=== PATIENT | female | born 1950 | race Caucasian/White ===

== ENCOUNTER 2018-10-22 08:10 | Emergency (ER) | payer SELFPAY ==
[2018-10-22] MEDS ORDERED: SODIUM CHLORIDE 0.9% 1,000 ML IV ONE (08:55)
[2018-10-22 09:11] LABS: BILIRUBIN,URINE NEGATIVE (NEGATIVE); GLUCOSE, URINE (UA) NEGATIVE (NEGATIVE); KETONES,URINE (UA) NEGATIVE (NEGATIVE); LEUKOCYTE ESTERASE, URINE SMALL (NEGATIVE); NITRITE,URINE POSITIVE (NEGATIVE); OCCULT BLOOD,URINE LARGE (NEGATIVE); PROTEIN,URINE 30 mg/dL (NEGATIVE); UROBILINOGEN,URINE 1 (NORMAL) E.U./dL (NORMAL)
[2018-10-22 09:16] LABS: CLARITY,URINE HAZY (CLEAR)
[2018-10-22 09:20] LABS: BASOPHILS # (AUTO) 0.1 10^3/uL (0.0-0.1); BASOPHILS % (AUTO) 0.9 %; EOSINOPHILS # (AUTO) 0.2 10^3/uL (0.0-0.7); EOSINOPHILS % (AUTO) 1.4 %; HGB - HEMOGLOBIN 12.2 g/dL (12.0-16.0); LYMPHOCYTES # (AUTO) 1.5 10^3/uL (1.5-3.5); LYMPHOCYTES % (AUTO) 12.5 %; MEAN CORPUSCULAR HEMOGLOBIN 27.2 pg (27.0-31.0); MEAN CORPUSCULAR HGB CONC 32.3 g/dL (32.0-36.0); MEAN CORPUSCULAR VOLUME 84.2 fL (81.0-99.0); MEAN PLATELET VOLUME 7.3 fL (7.9-10.8); MONOCYTES # (AUTO) 0.8 10^3/uL (0.0-1.0); NEUTROPHILS # (AUTO) 9.3 10^3/uL (1.5-6.6); NEUTROPHILS % (AUTO) 78.2 %; PLT - PLATELET COUNT 411 10^3/uL (130-450); RED BLOOD COUNT 4.49 10^6/uL (4.20-5.40); RED CELL DISTRIBUTION WIDTH 16.4 % (12.0-15.0); WHITE BLOOD COUNT 11.8 x10^3/uL (4.8-10.8)
[2018-10-22 09:26] LABS: SQUAMOUS EPITHELIAL CELL,UR FEW Squamous (<= Few)
[2018-10-22 09:27] LABS: BACTERIA,URINE Moderate /HPF (None Seen)
[2018-10-22 09:31] LABS: ALBUMIN 3.9 g/dL (3.2-5.5); ALBUMIN/GLOBULIN RATIO 1.1 (1.0-2.2); BILIRUBIN,TOTAL 0.7 mg/dL (0.2-1.0); CALCIUM 8.9 mg/dL (8.5-10.3); CREATININE 0.8 mg/dL (0.4-1.0); TOTAL PROTEIN 7.5 g/dL (6.7-8.2)
--- NOTE | 2018-10-22 09:38 | XRAY Report ---
Reason: weakness Procedure Date: 10/22/2018 Accession Number: [id number] / [id number] Procedure: XR - Chest 2 View X-Ray CPT Code: 84573 FULL RESULT: EXAM: CHEST RADIOGRAPHY EXAM DATE: 10/22/2018 09:28 AM. CLINICAL HISTORY: Weakness. COMPARISON: None. TECHNIQUE: 2 views. FINDINGS: Lungs/Pleura: There is minimal horizontal linear atelectasis or scarring at the bilateral lung bases. No focal airspace consolidation. No pleural effusion. No pneumothorax. Normal volumes. Mediastinum: Heart and mediastinal contours are unremarkable. There is minimal atherosclerotic calcification of the aortic arch. Other: No acute osseous abnormality. There are surgical clips in the right upper quadrant of the abdomen. IMPRESSION: No acute cardiopulmonary abnormality. RADIA
--- NOTE | 2018-10-22 10:02 | CT Report ---
Reason: BETANCOURT, h/o headache Procedure Date: 10/22/2018 Accession Number: [id number] / [id number] Procedure: CT - Head W/O CPT Code: FULL RESULT: EXAM: CT HEAD EXAM DATE: 10/22/2018 09:37 AM. CLINICAL HISTORY: Headache. History of melanoma and tumor excision. COMPARISON: CT HEAD WITHOUT CONTRAST 08/06/2018 12:48 PM MR BRAIN WITHOUT AND WITH CONTRAST 08/06/2018 7:[address] BRAIN STEALTH WITH CONTRAST 08/06/2018 8:[address] HEAD WITHOUT CONTRAST 07/29/2018 11:10 AM. TECHNIQUE: Multiaxial CT images were obtained from the foramen magnum to the vertex. Reformats: Sagittal and coronal. IV contrast: None. In accordance with CT protocol optimization, one or more of the following dose reduction techniques were utilized for this exam: automated exposure control, adjustment of mA and/or KV based on patient size, or use of iterative reconstructive technique. FINDINGS: Parenchyma: There are evolving postsurgical changes of left frontal craniotomy and prior resection of left frontal lobe mass. Vasogenic edema of the left anterior frontal lobe white matter is decreased compared to prior. The previously seen pneumocephalus and resection defect containing fluid and gas are no longer visualized. There is heterogeneous mildly increased density along the left aspect of the frontal portion of the falx measuring approximately 2.0 x 1.0 x 1.5 cm (series 4 image 16, and series 7 image 6). This was not apparent on the prior exam. This could represent evolving subacute blood products or recurrent mass. There is also a 7 mm ovoid focus of increased density at the inferior medial left frontal lobe (series 4 image 8), not previously seen. No acute abnormality of the remainder of brain parenchyma. There are diffuse bilateral microangiopathic white matter changes. Stinson-white differentiation is distinct. No midline shift. Extraaxial Spaces: Normal for age. As noted above, there is a heterogeneous focus of mildly increased density along the left anterior aspect of the falx which may represent subdural fluid. Otherwise, no subdural or epidural collection identified. Ventricles: Normal in size and position. Sinuses and Orbits: There is an air-fluid level in the left sphenoid sinus. Otherwise, Imaged paranasal sinuses, orbits, and mastoids show no significant abnormality. Bones: There is evidence of prior left frontal craniotomy, as seen on the prior exam. No calvarial defect or fracture identified. Other: There is irregularity of the scalp over the vertex, likely related to postsurgical changes of debulking of scalp mass. IMPRESSION: 1. Evolving postsurgical changes of left frontal craniotomy and prior resection of left frontal lobe mass. 2. Focus of heterogeneous mildly increased density along the left anterior aspect of the falx adjacent to the site of prior craniotomy measuring up to 2.0 cm. This may represent evolving subacute blood products, possibly subdural. 3. Tiny 7 mm ovoid focus of increased density at the inferior medial left frontal lobe may represent postsurgical change, intraparenchymal hemorrhage, or recurrent mass. 4. Diffuse microangiopathic white matter changes. 5. Air-fluid level in the left sphenoid sinus, raising the possibility of acute sinusitis. RADIA The above findings were discussed with Sameer Hernandez by Dr. Donato Blum at 10:01 hrs on 10/22/18.
[2018-10-22] MEDS ORDERED: cefTRIAXone 1 GM in SODIUM CHLORIDE 0.9% MINIBAG 100 ML IV STA (10:07)
[2018-10-22] MEDS ORDERED: cefTRIAXone 1 GM VIAL ONE (10:14)
--- NOTE | 2018-10-22 10:25 | ED Physician Documentation ---
History of Present Illness - Stated complaint Stated Complaint: WEAKNESS/BACK PX - Chief complaint Chief Complaint: General - Additonal information Additional information: 68-year-old female with a history of brain cancer who was being treated at [facility] and then left AGAINST MEDICAL ADVICE. The patient was recently in [place] and now returns back to [facility]. The patient presents the emergency department today with ongoing head pain which started a couple days ago, general weakness and dysuria. The patient denies fevers or chills or neck pain. The patient denies chest pain or shortness of breath. Symptoms are described as severe. The patient denies any focal neurologic changes. No other acute symptoms and no relieving factors. Review of Systems Constitutional: denies: Fever, Chills, Fatigue Eyes: denies: Discharge Nose: denies: Congestion Throat: denies: Sore throat Cardiac: denies: Chest pain / pressure Respiratory: denies: Dyspnea GI: denies: Abdominal Pain : reports: Dysuria Musculoskeletal: denies: Neck pain Neurologic: reports: Generalized weakness, Headache. denies: Focal weakness, Numbness, Difficulty speaking, Near syncope, Syncope, Confused, Altered mental status Immunocompromised: reports: Immunocompromised PD PAST MEDICAL HISTORY - Past Medical History Past Medical History: Yes Cardiovascular: Arrhythmia Respiratory: None Neuro: Other Endocrine/Autoimmune: Type 2 diabetes GI: GERD, Chronic diarrhea, Chronic constipation GROUP CIO: None : None Musculoskeletal: None Derm: Other Other Past Medical History: Hx of skin cancer, with mets in several places - Past Surgical History Past Surgical History: Yes General: Cholecystectomy /GROUP CIO: Tubal ligation, Hysterectomy, Oophrectomy Derm: Skin grafts, Skin cancer surgery - Present Medications Home Medications: Ambulatory Orders Medication Instructions Recorded Confirmed Cephalexin [Keflex] 500 mg PO BID #14 capsule 10/22/18 Docusate Sodium [Dulcolax Stool 10/22/18 Softener] Gabapentin 10/22/18 Metformin HCl 10/22/18 Metoprolol Tartrate [Lopressor] 10/22/18 Red Yeast Rice 10/22/18 - Allergies Allergies/Adverse Reactions: Allergies Allergy/AdvReac Type Severity Reaction Status Date / Time lodoxamide Allergy Rash Verified 10/22/18 08:21 - Social History Does the pt smoke?: No Smoking Status: Never smoker Does the pt drink ETOH?: No Does the pt have substance abuse?: No - Immunizations Immunizations are current?: Yes - POLST Patient has POLST: No PD ED PE NORMAL - General General: Alert and oriented X 3, No acute distress - HEENT HEENT: Atraumatic. No: PERRL, EOMI, Ears normal - Neck Neck: Supple, no meningeal sign - Cardiac Cardiac: RRR, Strong equal pulses - Respiratory Respiratory: No respiratory distress, Clear bilaterally - Abdomen Abdomen: Soft, Non tender - Back Back: No CVA TTP - Derm Derm: Normal color - Extremities Extremities: No deformity, Normal ROM s pain - Neuro Neuro: Alert and oriented X 3, artist model 2-12 intact, No motor deficit, No sensory de ficit, Normal speech - Psych Psych: Normal mood Results - Vitals Vitals: Vital Signs - 24 hr 10/22/18 10/22/18 08:11 10:06 Temperature 36.4 C L 36.7 C Heart Rate 96 81 Respiratory 16 16 Rate Blood Pressure 163/72 H 164/72 H O2 Saturation 96 100 Oxygen O2 Source Room air - EKG (time done) 09:05 Rate: Rate (enter#) Rhythm: NSR Intervals: Normal MO, QRS normal QRS: Normal Ischemia: Non specific changes Compare to prior EKG: Other (No acute ischemic changes) - Labs Labs: Laboratory Tests 10/22/18 10/22/18 10/22/18 08:30 09:00 09:11 WBC 11.8 H RBC 4.49 Hgb 12.2 Hct 37.8 MCV 84.2 MCH 27.2 MCHC 32.3 RDW 16.4 H Plt Count 411 MPV 7.3 L Neut # (Auto) 9.3 H Lymph # (Auto) 1.5 [place] # (Auto) 0.8 Eos # (Auto) 0.2 Baso # (Auto) 0.1 Absolute Nucleated RBC 0.00 Nucleated RBC % 0.0 Sodium Potassium Chloride Carbon Dioxide Anion Gap BUN Creatinine Estimated GFR (MDRD) Glucose POC Whole Bld Glucose 154 H Lactic Acid Calcium Total Bilirubin AST ALT Alkaline Phosphatase Total Creatine Kinase Troponin I Total Protein Albumin Globulin Albumin/Globulin Ratio Lipase Urine Color YELLOW Urine Clarity HAZY Urine pH 7.0 Ur Specific [place] 1.025 Urine Protein 30 H Urine Glucose (UA) NEGATIVE Urine Ketones NEGATIVE Urine Occult Blood LARGE H Urine Nitrite POSITIVE H Urine Bilirubin NEGATIVE Urine Urobilinogen 1 (NORMAL) Ur Leukocyte Esterase SMALL H Urine RBC 6-10 H Urine WBC >25 H Ur Squamous Epith Cells FEW Squamous Urine Bacteria Moderate H Ur Microscopic Review INDICATED Urine Culture Comments INDICATED 10/22/18 10/22/18 10/22/18 09:11 09:11 09:11 WBC RBC Hgb Hct MCV MCH MCHC RDW Plt Count MPV Neut # (Auto) Lymph # (Auto) [place] # (Auto) Eos # (Auto) Baso # (Auto) Absolute Nucleated RBC Nucleated RBC % Sodium 135 Potassium 3.6 Chloride 102 Carbon Dioxide 25 Anion Gap 8.0 BUN 11 Creatinine 0.8 Estimated GFR (MDRD) 72 L Glucose 148 H POC Whole Bld Glucose Lactic Acid 1.1 Calcium 8.9 Total Bilirubin 0.7 AST 19 ALT 14 Alkaline Phosphatase 96 Total Creatine Kinase 83 Troponin I < 0.04 Total Protein 7.5 Albumin 3.9 Globulin 3.6 Albumin/Globulin Ratio 1.1 Lipase 42 Urine Color Urine Clarity Urine pH Ur Specific [place] Urine Protein Urine Glucose (UA) Urine Ketones Urine Occult Blood Urine Nitrite Urine Bilirubin Urine Urobilinogen Ur Leukocyte Esterase Urine RBC Urine WBC Ur Squamous Epith Cells Urine Bacteria Ur Microscopic Review Urine Culture Comments - Rads (name of study) CT Head Radiology: Final report received (1. Evolving postsurgical changes of left frontal craniotomy and prior resection of left frontal lobe mass. 2. Focus ofheterogeneous mildly increased density along the left anterior aspect of the falx adjacent to the site of prior craniotomy measuring up to 2.0 cm. This mayrepresent evolving subacute blood products, possibly subdural. ), See rad report CXR Radiology: Final report received, See rad report (IMPRESSION: No acute cardiopulmonary abnormality. ) PD MEDICAL DECISION MAKING - ED course ED course: I discussed with the patient the findings on CT scan and the severity of these findings and the need for further workup with MRI with and without contrast. I explained to her that she will probably also need a consult with neurosurgery and possibly oncology and neurology. The patient fully understands the findings and has refused transfer to a higher level of care. Our facility does not have the ability to perform an urgent MRI out of the emergency department. I explained to the patient that this finding could result in significant disability and possibly if undiagnosed and untreated. The patient accepts this and wants to be discharged home. The patient will be treated for her urinary tract infection. The patient wants to follow-up as an outpatient and would prefer to make arrangements on her own. The patient is of sound mind and capable of making his decision. I advised that the patient can return back to the emergency department any point for reevaluation Departure - Departure Disposition: 01 Home, Self Care Clinical Impression: Weakness, Brain lesion UTI (urinary tract infection) Qualifiers: Urinary tract infection type: site unspecified Hematuria presence: without hematuria Qualified Code(s): N39.0 - Urinary tract infection, site not specified Condition: Good Instructions: ED Infec Bladder Female Ch Prescriptions: Cephalexin [Keflex] 500 mg PO BID #14 capsule Comments: You have refused transfer to [facility] or a another Medical Center with neurosurgery and oncology to further workup the findings on the CT scan today. You understand that these lesions could represent new cancer or possible acute blood and you need a MRI with and without contrast to further evaluate the findings. You have refused transfer at this point and do not want any further workup presently. You have decided to take full responsibility for your decision and are capable of making this decision. Please return back to the emergency department at any point for reevaluation and transfer to a higher level of care
[2018-10-22 10:45] VITALS: BP 161/87
== END 2018-10-22 10:45 | disposition home or self-care (01) ==
LOC: ED 08:10
DX: R53.1 Weakness (principal); G93.9 Disorder of brain, unspecified; N39.0 Urinary tract infection, site not specified; R94.31 Abnormal electrocardiogram [ECG] [EKG]; Z85.841 Personal history of malignant neoplasm of brain; E11.9 Type 2 diabetes mellitus without complications; Z79.84 Long term (current) use of oral hypoglycemic drugs
CPT/HCPCS: 36415; 70450; 71046; 80053; 81001; 81003; 82550; 83605; 83690; 84484; 85025; 87077; 87086; 87181; 93005; 96374; 99283; 99284

== ENCOUNTER 2018-10-23 20:33 | Emergency (ER) | payer MEDICARE ==
[2018-10-23 21:27] LABS: BILIRUBIN,URINE NEGATIVE (NEGATIVE); GLUCOSE, URINE (UA) NEGATIVE (NEGATIVE); KETONES,URINE (UA) TRACE mg/dL (NEGATIVE); LEUKOCYTE ESTERASE, URINE TRACE (NEGATIVE); NITRITE,URINE NEGATIVE (NEGATIVE); OCCULT BLOOD,URINE NEGATIVE (NEGATIVE); PH,URINE 5.5 PH (5.0-7.5); PROTEIN,URINE NEGATIVE (NEGATIVE); UROBILINOGEN,URINE 0.2 (NORMAL) E.U./dL (NORMAL)
[2018-10-23 21:32] LABS: INR 1.1 (0.8-1.2); PT - PROTHROMBIN TIME 12.3 secs (9.9-12.6)
[2018-10-23 21:34] LABS: BASOPHILS # (AUTO) 0.1 10^3/uL (0.0-0.1); BASOPHILS % (AUTO) 0.4 %; EOSINOPHILS # (AUTO) 0.4 10^3/uL (0.0-0.7); EOSINOPHILS % (AUTO) 2.9 %; HGB - HEMOGLOBIN 12.1 g/dL (12.0-16.0); LYMPHOCYTES # (AUTO) 2.1 10^3/uL (1.5-3.5); LYMPHOCYTES % (AUTO) 17.5 %; MEAN CORPUSCULAR HEMOGLOBIN 26.7 pg (27.0-31.0); MEAN CORPUSCULAR HGB CONC 30.7 g/dL (32.0-36.0); MEAN CORPUSCULAR VOLUME 86.8 fL (81.0-99.0); MEAN PLATELET VOLUME 7.5 fL (7.9-10.8); MONOCYTES # (AUTO) 1.1 10^3/uL (0.0-1.0); MONOCYTES % (AUTO) 8.8 %; NEUTROPHILS # (AUTO) 8.6 10^3/uL (1.5-6.6); NEUTROPHILS % (AUTO) 70.4 %; PLT - PLATELET COUNT 437 10^3/uL (130-450); RED BLOOD COUNT 4.55 10^6/uL (4.20-5.40); RED CELL DISTRIBUTION WIDTH 16.4 % (12.0-15.0); WHITE BLOOD COUNT 12.2 x10^3/uL (4.8-10.8)
[2018-10-23 21:37] LABS: ALBUMIN 3.8 g/dL (3.2-5.5); BILIRUBIN,TOTAL 0.3 mg/dL (0.2-1.0); CALCIUM 9.3 mg/dL (8.5-10.3); CREATININE 0.7 mg/dL (0.4-1.0); TOTAL PROTEIN 7.7 g/dL (6.7-8.2)
[2018-10-23 21:44] LABS: CLARITY,URINE CLEAR (CLEAR)
[2018-10-23 21:45] LABS: BACTERIA,URINE None Seen /HPF (None Seen); RBC,URINE 0-5 /HPF (0-5); SQUAMOUS EPITHELIAL CELL,UR MANY Squamous (<= Few)
[2018-10-23] MEDS ORDERED: SODIUM CHLORIDE 0.9% 1,000 ML IV ONE (21:57)
--- NOTE | 2018-10-23 22:09 | ED Physician Documentation ---
PD HPI HEADACHE - Stated complaint Stated Complaint: HEAD PAIN - Chief complaint Chief Complaint: Neuro - History obtained from History obtained from: Patient - History of Present Illness Timing - onset: How many days ago (5) Timing - onset during: Sleep Timing - duration: Days (5) Timing - details: Gradual onset Pain level max: 3 Pain level now: 3 Severity Comments: mild Worst headache ever?: Worst headache ever? (No) Location: Front Quality: Aching Associated symptoms: No: Fever, Stiff neck, Nausea, Vomiting Improved by: No: Rest, Dark room, Quiet Worsened by: Moving. No: Light, Noise Contributing factors: Other (History of skin graft and possible subdural hematoma) - Additional information Additional information: 68-year-old female with history of malignant melanoma with skin graft to the parietal region and recent CT showing possible subdural hematoma presents with worsening head pain.But Patient left AGAINST MEDICAL ADVICE yesterday and asks to be reevaluated and possibly transferred if needed for emergent MRI. Review of Systems Ten Systems: 10 systems reviewed and negative Constitutional: reports: Reviewed and negative Eyes: reports: Reviewed and negative Ears: reports: Reviewed and negative Nose: reports: Reviewed and negative Throat: reports: Reviewed and negative Cardiac: reports: Reviewed and negative Respiratory: reports: Reviewed and negative GI: reports: Reviewed and negative : reports: Reviewed and negative Skin: reports: Reviewed and negative Musculoskeletal: reports: Reviewed and negative Neurologic: reports: Reviewed and negative Psychiatric: reports: Reviewed and negative Endocrine: reports: Reviewed and negative Immunocompromised: reports: Reviewed and negative PD PAST MEDICAL HISTORY - Past Medical History Past Medical History: Yes Cardiovascular: Hypertension, High cholesterol, Arrhythmia Respiratory: None Neuro: Other Endocrine/Autoimmune: Type 2 diabetes GI: GERD, Chronic diarrhea, Chronic constipation 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: None : None Musculoskeletal: None Derm: Other - Past Surgical History Past Surgical History: Yes General: Cholecystectomy /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: Tubal ligation, Hysterectomy, Oophrectomy Neuro: Other Derm: Skin grafts, Skin cancer surgery - Present Medications Home Medications: Ambulatory Orders Medication Instructions Recorded Confirmed Cephalexin [Keflex] 500 mg PO BID #14 capsule 10/22/18 Docusate Sodium [Dulcolax Stool 10/22/18 Softener] Gabapentin 10/22/18 Metformin HCl 10/22/18 Metoprolol Tartrate [Lopressor] 10/22/18 Red Yeast Rice 10/22/18 - Allergies Allergies/Adverse Reactions: Allergies Allergy/AdvReac Type Severity Reaction Status Date / Time lodoxamide Allergy Rash Verified 10/23/18 20:41 - Living Situation Living Situation: reports: With family Living Arrangement: reports: At home - Social History Does the pt smoke?: No Smoking Status: Never smoker Does the pt drink ETOH?: No Does the pt have substance abuse?: No - Family History Family history: reports: Other (Reviewed and not pertinent) - Immunizations Immunizations are current?: Yes - POLST Patient has POLST: No PD ED PE NORMAL - Vitals Vital signs reviewed: Yes - General General: Alert and oriented X 3, No acute distress - HEENT HEENT: PERRL, Other (Scalp with small erythematous mass in the parietal region.) - Neck Neck: Supple, no meningeal sign - Cardiac Cardiac: RRR, No murmur - Respiratory Respiratory: Clear bilaterally - Abdomen Abdomen: Normal bowel sounds, Soft, Non tender, Non distended - Derm Derm: Warm and dry - Extremities Extremities: No deformity - Neuro Neuro: Alert and oriented X 3 - Psych Psych: Normal mood, Normal affect Results - Vitals Vitals: Vital Signs - 24 hr 10/23/18 10/24/18 20:38 01:00 Temperature 36.2 C L Heart Rate 99 95 Respiratory 18 18 Rate Blood Pressure 168/76 H 158/75 H O2 Saturation 99 97 Oxygen O2 Source Room air - Labs Labs: Laboratory Tests 10/23/18 10/23/18 10/23/18 21:10 21:20 21:20 WBC 12.2 H RBC 4.55 Hgb 12.1 Hct 39.5 MCV 86.8 MCH 26.7 L MCHC 30.7 L RDW 16.4 H Plt Count 437 MPV 7.5 L Neut # (Auto) 8.6 H Lymph # (Auto) 2.1 [place] # (Auto) 1.1 H Eos # (Auto) 0.4 Baso # (Auto) 0.1 Absolute Nucleated RBC 0.00 Nucleated RBC % 0.0 PT 12.3 INR 1.1 Sodium Potassium Chloride Carbon Dioxide Anion Gap BUN Creatinine Estimated GFR (MDRD) Glucose Calcium Total Bilirubin AST ALT Alkaline Phosphatase Total Protein Albumin Globulin Albumin/Globulin Ratio Urine Color YELLOW Urine Clarity CLEAR Urine pH 5.5 Ur Specific [place] >=1.030 H Urine Protein NEGATIVE Urine Glucose (UA) NEGATIVE Urine Ketones TRACE Urine Occult Blood NEGATIVE Urine Nitrite NEGATIVE Urine Bilirubin NEGATIVE Urine Urobilinogen 0.2 (NORMAL) Ur Leukocyte Esterase TRACE H Urine RBC 0-5 Urine WBC 0-3 Ur Squamous Epith Cells MANY Squamous H Urine Bacteria None Seen Urine Culture Comments NOT INDICATED 10/23/18 21:20 WBC RBC Hgb Hct MCV MCH MCHC RDW Plt Count MPV Neut # (Auto) Lymph # (Auto) [place] # (Auto) Eos # (Auto) Baso # (Auto) Absolute Nucleated RBC Nucleated RBC % PT INR Sodium 141 Potassium 3.3 L Chloride 104 Carbon Dioxide 27 Anion Gap 10.0 BUN 16 Creatinine 0.7 Estimated GFR (MDRD) 84 L Glucose 162 H Calcium 9.3 Total Bilirubin 0.3 AST 16 ALT 14 Alkaline Phosphatase 102 Total Protein 7.7 Albumin 3.8 Globulin 3.9 Albumin/Globulin Ratio 1.0 Urine Color Urine Clarity Urine pH Ur Specific [place] Urine Protein Urine Glucose (UA) Urine Ketones Urine Occult Blood Urine Nitrite Urine Bilirubin Urine Urobilinogen Ur Leukocyte Esterase Urine RBC Urine WBC Ur Squamous Epith Cells Urine Bacteria Urine Culture Comments - Rads (name of study) CT Head Radiology: Final report received PD MEDICAL DECISION MAKING - ED course Complexity details: reviewed old records, reviewed results, re-evaluated patient, considered differential, d/w patient, d/w family, d/w 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 Head CT shows 2.5 cm hyperdensity concerning for subdural hematoma. Neurosurgery Dr. Van at [facility] was consulted who recommended transfer. Patient was transferred by ALS. In route patient became anxious and requested to return to our emergency department. I spoke over the phone the patient and reassured her that she would be well taken care of by the neurosurgery team at [facility]. Patient agreed to continue transporting but vowed "I will paty you if they do any operation on me". Departure - Departure Disposition: 02 Transfer Acute Care Hosp Clinical Impression: Subdural hematoma Condition: Serious Discharge Date/Time: 10/24/18 01:57
--- NOTE | 2018-10-23 23:03 | CT Report ---
Reason: Possible subdural, headache Procedure Date: 10/23/2018 Accession Number: [id number] / [id number] Procedure: CT - Head W/O CPT Code: FULL RESULT: EXAM: CT HEAD EXAM DATE: 10/23/2018 09:34 PM. CLINICAL HISTORY: Possible subdural, headache. COMPARISON: Head CT 10/22/2018, brain MRI 08/06/2018, head CT 08/06/2018, and head CT 07/29/2018. TECHNIQUE: Multiaxial CT images were obtained from the foramen magnum to the vertex. Reformats: Sagittal and coronal. IV contrast: None. In accordance with CT protocol optimization, one or more of the following dose reduction techniques were utilized for this exam: automated exposure control, adjustment of mA and/or KV based on patient size, or use of iterative reconstructive technique. FINDINGS: Again patient status post left anterior frontal craniotomy for resection of left anterior frontal metastasis. There is persistent extensive vasogenic edema involving bilateral frontal lobes. Again there is mildly increased density in the area of resection cavity (measuring 16 x 19 mm) as well as involving the anterior interhemispheric fissure (measuring 11 x 23 mm). 49 HU. There is persistent mass-effect with effacement of anterior aspect of lateral ventricles and bifrontal sulcal effacement. No additional area of high density. There are vascular calcifications. There is an apparent scalp lipoma with thickening of the superior midline scalp. IMPRESSION: Short interval stability of 2.3 cm area of anterior interhemispheric hyperdensity and adjacent left anterior frontal resection cavity which may represent mass or subacute hemorrhage. MRI may be helpful. RADIA
[2018-10-24 01:35] VITALS: BP 158/75
== END 2018-10-24 01:57 | disposition short-term general hospital (02) ==
LOC: ED 20:33
DX: I62.00 Nontraumatic subdural hemorrhage, unspecified (principal); Z85.820 Personal history of malignant melanoma of skin; Z85.841 Personal history of malignant neoplasm of brain; I10 Essential (primary) hypertension; E78.00 Pure hypercholesterolemia, unspecified; E11.9 Type 2 diabetes mellitus without complications; Z79.84 Long term (current) use of oral hypoglycemic drugs
CPT/HCPCS: 36415; 70450; 80053; 81001; 85025; 85610; 87086; 96360; 99284

== ENCOUNTER 2018-10-24 03:18 | Outpatient (CLI) | payer MEDICARE | END 2018-10-24 03:19 | disposition short-term general hospital (02) | LOC: EMS 03:18 | PROVIDERS: ATTEND Surgery | DX: I62.00 Nontraumatic subdural hemorrhage, unspecified (principal) | CPT/HCPCS: A0425; A0428 ==